=== PATIENT | female | born 1960 | race Caucasian/White ===

== ENCOUNTER 2016-11-02 16:25 | Inpatient (IN) | payer OTHER ==
[~2016-11-02] VITALS: Ht 165.1 cm; Wt 89.8 kg
[~2016-11-02 16:25] MED LIST: ATA10 PO; BENZ1TAB24 PO; CLON1TAB PO; DIVA500T1 PO; LEVO0.0711 PO; LORA-476 PO; PARO20TA13 PO; RISP2TAB PO; TRAZ-286 PO; [UNRECOGNIZED DRUG - CODE] PO
--- NOTE | 2016-11-02 16:25 | NUR ---
Note undone in EDM - 11/02/16 at 1736 by [email or web address] 56 /F BIBA FROM HOME FOR POSSIBLE INGESTION OF XANAX, UNKNOWN AMOUNT UNKNOWN TIME. DENIES N/V/D; SKIN IS PINK/WARM/DRY; PT ALERT & OREINTED TO NAME . PT STS PT TOOK HER FREIND MED "XANAX" BUT CAN'T REMEMBER TIME OR HOW MUCH. PT HAS UNSTEADY GAIT; LUNGS CLEAR BL; HR EVEN AND REGULAR; PT DENIES ANY FEVER, CP, SOB, OR COUGH AT THIS TIME; PATIENT STATES PAIN OF 0/10 AT THIS TIME; VSS; PATIENT POSITIONED FOR COMFORT; HOB ELEVATED; BEDRAILS UP X2; BED DOWN. ER MD MADE AWARE OF PT STATUS.
--- NOTE | 2016-11-02 16:25 | NUR ---
Patient BIBA ACLS, transferred to bed 4. RN evaluating patient at bedside.
--- NOTE | 2016-11-02 16:25 | NUR ---
56 /F BIBA FROM HOME FOR POSSIBLE INGESTION OF XANAX, UNKNOWN AMOUNT UNKNOWN TIME. DENIES N/V/D; SKIN IS PINK/WARM/DRY; PT ALERT & OREINTED TO NAME . PT STS PT TOOK HER FREIND MED "XANAX" BUT CAN'T REMEMBER TIME OR HOW MUCH. PT HAS STEADY GAIT; LUNGS CLEAR BL; HR EVEN AND REGULAR; PT DENIES ANY FEVER, CP, SOB, OR COUGH AT THIS TIME; PATIENT STATES PAIN OF 0/10 AT THIS TIME; VSS; PATIENT POSITIONED FOR COMFORT; HOB ELEVATED; BEDRAILS UP X2; BED DOWN. ER MADE AWARE OF PT STATUS. Addendum: 11/02/16 at 1825 by [email or web address] PT DENIES TO KILL HERSELF JUST TOOK MED FOR DEORESSION.
[2016-11-02 16:28] VITALS: BP 117/77
[2016-11-02] MEDS ORDERED: NACL 0.9% 1,000 ML IV ONE (16:50)
--- NOTE | 2016-11-02 17:04 | NUR ---
X RAY AT BEDSIDE
--- NOTE | 2016-11-02 17:09 | NUR ---
EKG AT BEDSIDE.
[2016-11-02 17:17] LABS: BASOPHILS # (AUTO) 0.3 K/uL (0.00-0.22); EOSINOPHILS # (AUTO) 0.2 K/uL (0-0.4); HEMATOCRIT 40.9 % (36-48); HEMOGLOBIN 13.6 g/dL (12.0-16.0); MEAN CORPUSCULAR HEMOGLOBIN 30 pg (27-31); MEAN CORPUSCULAR HGB CONC 33 g/dL (33-37); MEAN CORPUSCULAR VOLUME 91 fL (80-94); MONOCYTES # (AUTO) 0.2 K/uL (0.8-1.0); NEUTROPHILS # (AUTO) 3.3 K/uL (1.8-7.7); PLATELET COUNT (AUTO) 228 K/uL (140-450); RED CELL DISTRIBUTION WIDTH 12.7 % (11.6-13.7)
[2016-11-02 17:26] LABS: PROTHROMBIN TIME 10.1 secs (10.8-13.4)
[2016-11-02 17:30] LABS: ALBUMIN 3.3 g/dL (3.4-5.0); ANION GAP 12.4 (8-16); CARBON DIOXIDE 25.8 mmol/L (21-32); CREATININE 0.9 mg/dL (0.6-1.3); POTASSIUM 4.2 mmol/L (3.5-5.1); TOTAL BILIRUBIN 0.1 mg/dL (0.0-1.0)
--- NOTE | 2016-11-02 17:34 | NUR ---
Patient appears to be resting comfortably in bed. Vital Signs within normal limits. Respirations even and unlabored.WILL CONTINUE TO MONITOR.
[2016-11-02 17:48] LABS: ACETAMINOPHEN < 0.5 ug/ml (10-30); SALICYLATE < 2.8 mg/dL (2.8-20.0)
[2016-11-02 17:57] LABS: BILIRUBIN,URINE NEGATIVE (NEGATIVE); BLOOD, URINE NEGATIVE (NEGATIVE); COLOR,URINE YELLOW (YELLOW); LEUKOCYTE ESTERASE ,URINE NEGATIVE (NEGATIVE); NITRITE, URINE NEGATIVE (NEGATIVE); UGLUCOSE NEGATIVE (NEGATIVE)
[2016-11-02 18:04] LABS: BARBITURATE, URINE NEG. ng/ml (NEG <=200); BENZODIAZEPINE, URINE NEG. ng/mL (NEG <=200); CANNABINOID, URINE NEG. ng/mL (NEG <=50); COCAINE, URINE NEG. ng/mL (NEG <=300); OPIATE, URINE NEG. ng/mL (NEG <=2000); PHENCYCLIDINE SCREEN,URINE NEG. ng/mL (NEG <=25)
[2016-11-02 18:05] LABS: APPEARANCE,URINE CLEAR (CLEAR)
[2016-11-02] MEDS ORDERED: ACETAMINOPHEN 325 MG TAB PO PRN (18:15)
[2016-11-02] MEDS ORDERED: MORPHINE SULFATE 2 MG/ML SYR IVP PRN (18:15)
[2016-11-02] MEDS ORDERED: ONDANSETRON 4 MG/2 ML VIAL IM/IVP PRN (18:15)
[2016-11-02] MEDS ORDERED: DOCUSATE SODIUM 100 MG GELCAP PO PRN (18:15)
[2016-11-02] MEDS ORDERED: HYDROcodone/APAP 7.5/325 MG 1 TAB PO PRN (18:15)
--- NOTE | 2016-11-02 18:35 | NUR ---
GAVE REPORT TO KONSTANTIN BO.
--- NOTE | 2016-11-02 18:36 | NUR ---
Patient will be admitted to care of DR CERDA. Admited to TELE. Will go to [facility]. Belongings list completed. Report to KONSTANTIN BO.
--- NOTE | 2016-11-02 18:50 | NUR ---
PT ARRIVED ON THE UNIT ON A GURNEY WITH 2 ER NURSES. PT IS LUCID, MUMBLING, HARD TO UNDERSTAND. PT WEARING NC 2L O2 AND GLASSES. SHE HAS AN IV ON R AC 20G. NS JUST FINISHED. PT WANTED TO USE TO THE BATHROOM. ASSISTED PT. PT IS UNSTEADY ON HER FEET. V/S WITHIN NORMAL. WILL ENDORSE PT AND ASSESSMENT TO ONCOMING NURSE.
[2016-11-02 19:00] VITALS: BP_SYST 109; BP_SYST 116; BP_DIAS 76; BP_DIAS 83
--- NOTE | 2016-11-02 19:15 | NUR ---
ENDORSED PT TO THE SALVAGER HELPER NURSE AT BEDSIDE FOR CONTINUITY OF CARE. PT IS IN STABLE CONDITION. IN BED.
--- NOTE | 2016-11-02 19:16 | NUR ---
RECEIVED PATIENT REPORT FROM MORNING NURSE. PATIENT IS AWAKE BUT CONFUSED. NO SIGNS AND SYMPTOMS OF DISTRESS NOTED. NO COMPLAINTS OF PAIN AT THIS TIME. PT ON O2 2L VIA NC. IV SITE NOTED ON RIGHT AC, SALINE LOCKED. SURGICAL SCAR NOTED ON LEFT CHEST, DRY AND INTACT. BED IN LOWEST POSITION, SIDE RAILS UP AND CALL LIGHT WITHIN REACH. WILL CONTINUE TO MONITOR. Addendum: 11/03/16 at 0300 by Jona Barnes RN SURGICAL SCAR NOTED ON RIGHT CHEST, NOT LEFT
[2016-11-02 19:39] LABS: FREE T4 (FREE THYROXINE) 1.01 ng/dL (0.76-1.46); MAGNESIUM 2.1 mg/dL (1.8-2.4); PHOSPHORUS 4.1 mg/dL (2.5-4.9); THYROID STIMULATING HORMONE 0.29 uIU/mL (0.34-3.74)
[2016-11-02] MEDS: NACL 0.9% 1,000 ML IV SCH (21:30)
--- NOTE | 2016-11-02 21:30 | NUR ---
ASSISTED PATIENT TO THE RESTROOM. PATIENT VOIDED. NO SIGNS AND SYMPTOMS OF DISTRESS NOTED.
[2016-11-02] MEDS ORDERED: LORazepam 2 MG/ML VIAL IVP PRN (21:40)
--- NOTE | 2016-11-02 23:00 | NUR ---
ASSISTED PATIENT TO THE RESTROOM. PATIENT VOIDED. NO SIGNS AND SYMPTOMS OF DISTRESS NOTED.
[2016-11-03] VITALS: BP 136/89
--- NOTE | 2016-11-03 | NUR ---
RECEIVED A PHONE CALL FROM POISON CONTROL REGARDING PATIENT. POISON CONTROL REQUESTED LATEST VITAL SIGNS AND PATIENT'S STATUS. THEY INFORMED ME THAT A XANAX OVERDOSE IS ANTICIPATED TO RESOLVE WITHIN 4 HOURS OF OVERDOSE.
--- NOTE | 2016-11-03 00:30 | NUR ---
ASSISTED PATIENT TO THE RESTROOM. PATIENT VOIDED. NO SIGNS AND SYMPTOMS OF DISTRESS NOTED.
--- NOTE | 2016-11-03 01:20 | NUR ---
ASSISTED PATIENT TO THE RESTROOM. PATIENT VOIDED. NO SIGNS AND SYMPTOMS OF DISTRESS NOTED.
[2016-11-03] MEDS: NACL 0.9% 1,000 ML IV SCH ×3 (01:57→16:04)
--- NOTE | 2016-11-03 03:15 | NUR ---
ASSISTED PATIENT TO THE RESTROOM. PATIENT VOIDED. NO SIGNS AND SYMPTOMS OF DISTRESS NOTED.
[2016-11-03] MEDS ORDERED: hydrOXYzine HCL 10 MG TAB PO PRN (03:45)
[2016-11-03 04:00] VITALS: BP 122/86
--- NOTE | 2016-11-03 05:05 | NUR ---
ASSISTED PATIENT TO THE RESTROOM. PATIENT VOIDED. NO SIGNS AND SYMPTOMS OF DISTRESS NOTED.
[2016-11-03 06:17] LABS: BASOPHILS # (AUTO) 0.3 K/uL (0.00-0.22); BASOPHILS % (AUTO) 4.5 % (0.0-2.0); EOSINOPHILS # (AUTO) 0.2 K/uL (0-0.4); EOSINOPHILS % (AUTO) 3.7 % (0.0-4.0); HEMATOCRIT 37.8 % (36-48); HEMOGLOBIN 12.5 g/dL (12.0-16.0); LYMPHOCYTES # (AUTO) 1.7 K/uL (2.5-16.5); LYMPHOCYTES % (AUTO) 29.1 % (20.5-51.1); MEAN CORPUSCULAR HEMOGLOBIN 30 pg (27-31); MEAN CORPUSCULAR HGB CONC 33 g/dL (33-37); MEAN CORPUSCULAR VOLUME 91 fL (80-94); MONOCYTES # (AUTO) 0.4 K/uL (0.8-1.0); MONOCYTES % (AUTO) 6.6 % (1.7-9.3); NEUTROPHILS # (AUTO) 3.3 K/uL (1.8-7.7); NEUTROPHILS % (AUTO) 56.1 % (42.2-75.2); PLATELET COUNT (AUTO) 225 K/uL (140-450); RED BLOOD CELL COUNT(AUTO) 4.15 MIL/uL (4.20-5.40); RED CELL DISTRIBUTION WIDTH 12.2 % (11.6-13.7); WHITE BLOOD COUNT (AUTO) 5.9 K/uL (4.8-10.8)
[2016-11-03 06:37] LABS: ANION GAP 9.6 (8-16); CARBON DIOXIDE 25.3 mmol/L (21-32); CREATININE 0.7 mg/dL (0.6-1.3); POTASSIUM 3.9 mmol/L (3.5-5.1)
[2016-11-03 06:41] LABS: PHOSPHORUS 3.7 mg/dL (2.5-4.9)
[2016-11-03] MEDS ORDERED: LORazepam 1 MG TAB PO SCH (07:00)
--- NOTE | 2016-11-03 07:28 | NUR ---
PATIENT REPORT GIVEN TO MORNING NURSE. PATIENT IS IN STABLE CONDITION.
--- NOTE | 2016-11-03 07:29 | NUR ---
PT AWAKE AND ALERT, NO SIGNS OF ACUTE DISTRESS. BOWEL SOUNDS ACTIVE IN ALL 4 QUADRANTS. BOWEL AND BLADDER CONTINENCE. SKIN INTACT. IV PATENT AND ASYMPTOMATIC. PT ON ROOM AIR. RE-ORIENTED TO HOSPITAL AND TO UNIT, PT VERBALIZED UNDERSTANDING. BED IN LOW POSITION WITH BILATERAL HALF SIDE RAILS UP, BED ALARM ON, CALL LIGHT WITHIN REACH. WILL CONTINUE TO MONITOR.
[2016-11-03 08:00] VITALS: BP 129/86
--- NOTE | 2016-11-03 08:15 | NUR ---
RE-ORIENTED PATIENT TO UNIT. SPOKE WITH PATIENT REGARDING XANEX OVERDOSE. PER PATIENT IT WAS AN ACCIDENTAL OD, SHE DIDN'T DO IT ON PURPOSE. BED IN LOW POSITION WITH BILATERAL HALF SIDE RAILS UP, CALL LIGHT WITHIN REACH. WILL CONTINUE TO MONITOR.
--- NOTE | 2016-11-03 08:16 | NUR ---
PATIENT HAS BEEN SCREENED AND CATEGORIZED MODERATE NUTRITION RISK. PATIENT WILL BE SEEN WITHIN 3-5 DAYS OF ADMISSION. 11/05/16-11/07/[address]
[2016-11-03 08:23] LABS: T4 (THYROXINE) 5.8 ug/dL (4.5-12.0)
[2016-11-03] MEDS ORDERED: ONDANSETRON 4 MG/2 ML VIAL IM/IVP PRN (08:25)
[2016-11-03] MEDS ORDERED: ACETAMINOPHEN 325 MG TAB PO PRN (08:25)
[2016-11-03] MEDS ORDERED: MORPHINE SULFATE 2 MG/ML SYR IVP PRN (08:25)
[2016-11-03] MEDS ORDERED: HYDROcodone/APAP 7.5/325 MG 1 TAB PO PRN (08:25)
[2016-11-03] MEDS ORDERED: DOCUSATE SODIUM 100 MG GELCAP PO PRN (08:25)
[2016-11-03] MEDS ORDERED: PARoxetine 20 MG TAB PO SCH (09:00)
[2016-11-03] MEDS ORDERED: LEVOTHYROXINE 0.075 MG TAB PO SCH (09:00)
--- NOTE | 2016-11-03 09:42 | NUR ---
GREGORY NOTE SPOKE WITH SAUD OF [facility] PH# [phone] [facility] AND INFORMED HER OF THE ORDER FOR PATIENT TRANSFER TO [facility]. PER SAUD, THERE IS NO ASSIGNED COSMETOLOGY EDUCATOR YET AND SHE REQUESTED CLINICAL REVIEW BE FAXED TO [facility]. FAXED INITIAL REVIEW TO [facility] [phone]. WILL FOLLOW UP.
--- NOTE | 2016-11-03 10:00 | NUR ---
PT CONTINUOUSLY REMOVING TELE MONITOR. DR ROSA MADE AWARE.
[2016-11-03] MEDS: BENZTROPINE 1 MG TAB PO SCH ×3 (10:02→17:05)
[2016-11-03] MEDS: risperiDONE 1 MG TAB PO SCH ×2 (10:02→12:07)
[2016-11-03] MEDS: clonazePAM 0.5 MG TAB PO SCH ×3 (10:03→17:05)
--- NOTE | 2016-11-03 10:30 | NUR ---
PATIENT RESTING COMFORTABLY IN BED, SPOUSE AT BEDSIDE, NO SIGNS OF ACUTE DISTRESS. BED IN LOW POSITION WITH BILATERAL HALF SIDE RAILS UP, BED ALARM ON, CALL LIGHT WITHIN REACH. WILL CONTINUE TO MONITOR.
--- NOTE | 2016-11-03 11:07 | NUR ---
CM NOTE SPOKE WITH RACH OF [facility] [phone] [facility], WHO SAID THE ASSIGNED CM IS WINIFRED Burgos WHO IS CURRENTLY ON THE PHONE ON ANOTHER LINE. PER RACH, GREGORY Burgos WILL CALL BACK ONCE SHE HAS THE DETAILS FOR THE TRANSFER. WILL FOLLOW UP.
[2016-11-03 12:00] VITALS: BP 98/56
[2016-11-03] MEDS: LORazepam 1 MG TAB PO SCH ×2 (12:08→17:04)
--- NOTE | 2016-11-03 12:45 | NUR ---
HELPED PATIENT TO RESTROOM, PT AWAKE AND ALERT, NO SIGNS OF ACUTE DISTRESS. BED IN LOW POSITION WITH BILATERAL HALF SIDE RAILS UP, BED ALARM ON, CALL LIGHT WITHIN REACH. WILL CONTINUE TO MONITOR.
--- NOTE | 2016-11-03 13:10 | NUR ---
GREGORY NOTE SPOKE WITH GREGORY Burgos OF [place] PH# [phone] [facility]. PER GREGORY VITALE, WAITING FOR BED AVAILABILITY IN [facility]. GREGORY VITALE MADE AWARE OF THE NUMBER TO THE FLOOR WHERE PATIENT IS IN CASE BED BECOMES AVAILABLE AT A LATER TIME TODAY. CHARGE NURSE GUERA HOUGH.
--- NOTE | 2016-11-03 13:25 | NUR ---
Social Service Note: I met with patient at bedside. She stated accidently took medication prior to hospital admission, she denies suicidal ideation. She stated she does not want to harm herself or others. I inquired if she was suicidal several times, she denied suicidal ideation.
--- NOTE | 2016-11-03 14:50 | NUR ---
PT RESTING IN BED, NO SIGNS OF ACUTE DISTRESS. BED IN LOW POSITION WITH BILATERAL HALF SIDE RAILS UP, CALL LIGHT WITHIN REACH. WILL CONTINUE TO MONITOR.
--- NOTE | 2016-11-03 15:50 | NUR ---
RECEIVED ORDER FROM DR MERCADO TO TRANSFER TO [facility]UR[facility], NOTED, WILL CARRY OUT.
[2016-11-03 16:00] VITALS: BP 140/91
--- NOTE | 2016-11-03 16:41 | NUR ---
PT SLEEPING, NO SIGNS OF ACUTE DISTRESS. BED IN LOW POSITION WITH BILATERAL HALF SIDE RAILS UP, BED ALARM ON, CALL LIGHT WITHIN REACH. WILL CONTINUE TO MONITOR.
--- NOTE | 2016-11-03 18:40 | NUR ---
PT SLEEPING, NO SIGNS OF ACUTE DISTRESS. BED IN LOW POSITION, BED ALARM ON, BILATERAL HALF SIDE RAILS UP, CALL LIGHT WITHIN REACH. WILL CONTINUE TO MONITOR.
--- NOTE | 2016-11-03 19:28 | NUR ---
PT AWAKE AND ALERT, NO SIGNS OF ACUTE DISTRESS. ENDORSED TO PHOTO ENGRAVER NURSE FOR CONTINUITY OF CARE. BED IN LOW POSITION, BILATERAL HALF SIDE RAILS UP, CALL LIGHT WITHIN REACH, BED ALARM ON.
--- NOTE | 2016-11-03 19:30 | NUR ---
RECEIVED REPORT FROM DAY RN AT BEDSIDE, PATIENT IS AAOX2 ON ROOM AIR, PATIENT IS FORGETFUL. NO SOB OR SIGN OF DISTRESS AT THIS TIME, IV TO LEFT WRIST PATENT AND INTACT. SKIN INTACT WITH HEALED SURGICAL SCAR TO RIGHT BREAST. PATIENT DENIES PAIN AT TIS TIME. DISCUSSED PLAN OF CARE WITH PATIENT, PT VERBALIZED UNDERSTANDING, REINFORCEMENT NEEDED. SAFETY MEASURES CHECKED, BED ALARM ON , CALL LIGHT WITHIN REACH. WILL CONTINUE TO MONITOR
[2016-11-03 20:00] VITALS: BP 108/78
[2016-11-03] MEDS ORDERED: DIVALPROEX 500 MG TABER PO SCH (21:00)
--- NOTE | 2016-11-03 21:52 | NUR ---
PATIENT TO BE TRANSFERRED TO [facility]. CALLED AND GAVE REPORT TO KONSTANTIN PORTILLO. PATIENT TO GO TO ROOM 8246. MEDICAL OFFICE WORKER TIME ESTIMATED AT 9070
--- NOTE | 2016-11-03 22:00 | NUR ---
PATIENT RESTING IN BED, CONFUSED, SAFETY MEASURES CHECKED, BED ALARM ON, CALL LIGHT WITHIN REACH. WILL CONTINUE TO MONITOR.
--- NOTE | 2016-11-03 22:36 | NUR ---
PATIENT PICKED UP BY TRANSPORT, IV TO LEFT WRIST INTACT. ALL PATIENT BELONGINGS WITH PATIENT, PAPER WORK SIGNED, PATIENT IN STABLE CONDITION.
== END 2016-11-03 22:40 | disposition short-term general hospital (02) | DRG 917 ==
LOC: MED 16:25 → MTU 18:22
PROVIDERS: ADMIT Family Medicine; ATTEND Family Medicine
DX: T42.4X1A Poisoning by benzodiazepines, accidental (unintentional), initial encounter (principal); G92 Toxic encephalopathy; F31.9 Bipolar disorder, unspecified; E44.1 Mild protein-calorie malnutrition; G25.81 Restless legs syndrome; G40.909 Epilepsy, unspecified, not intractable, without status epilepticus; F41.9 Anxiety disorder, unspecified; Z68.32 Body mass index [BMI] 32.0-32.9, adult; E05.90 Thyrotoxicosis, unspecified without thyrotoxic crisis or storm
CPT/HCPCS: 36415; 70450; 71010; 80048; 80053; 80305; 81003; 82150; 83036; 83690; 83735; 83880; 84100; 84436; 84439; 84443; 84479; 84484; 85025; 85610; 85730; 87081; 93005; 96360; 99291; G0480; G0482; J2060; J7030; J7060

== ENCOUNTER 2022-05-26 18:03 | Emergency (ER) | payer OTHER ==
[~2022-05-26] VITALS: Ht 167.6 cm; Wt 119.3 kg
[~2022-05-26 18:03] MED LIST changes: -TRAZ-286 PO; +TRAZ-343 PO
[2022-05-26 18:08] VITALS: BP 148/91
--- NOTE | 2022-05-27 01:07 | NUR ---
mayo syed assisted to bed #1
[2022-05-27 01:38] LABS: BASOPHILS # (AUTO) 0.1 K/uL (0.00-0.22); BASOPHILS % (AUTO) 1.1 % (0.0-2.0); EOSINOPHILS # (AUTO) 0.3 K/uL (0-0.4); HEMATOCRIT 41.4 % (36-48); HEMOGLOBIN 13.7 g/dL (12.0-16.0); LYMPHOCYTES # (AUTO) 3.9 K/uL (2.5-16.5); LYMPHOCYTES % (AUTO) 35.8 % (20.5-51.1); MEAN CORPUSCULAR HEMOGLOBIN 30 pg (27-31); MEAN CORPUSCULAR HGB CONC 33 g/dL (33-37); MEAN CORPUSCULAR VOLUME 90.3 fL (80-94); MONOCYTES % (AUTO) 8.9 % (1.7-9.3); NEUTROPHILS # (AUTO) 5.6 K/uL (1.8-7.7); NEUTROPHILS % (AUTO) 51.2 % (42.2-75.2); PLATELET COUNT (AUTO) 276 K/uL (140-450); RED BLOOD CELL COUNT(AUTO) 4.58 MIL/uL (4.20-5.40); RED CELL DISTRIBUTION WIDTH 14.6 % (11.6-13.7); WHITE BLOOD COUNT (AUTO) 10.9 K/uL (4.8-10.8)
--- NOTE | 2022-05-27 02:18 | NUR ---
ASSUMED CARE AT THIS TIME
--- NOTE | 2022-05-27 02:27 | NUR ---
ATTACHED TO CM = SR WITHOUT ECTOPY
[2022-05-27 02:41] LABS: ANION GAP 17.9 (8-16); CARBON DIOXIDE 24.1 mmol/L (21-32)
[2022-05-27 02:42] LABS: ALBUMIN 3.8 g/dL (3.4-5.0)
[2022-05-27 02:45] LABS: TOTAL BILIRUBIN 0.3 mg/dL (0.0-1.0)
[2022-05-27 03:40] VITALS: BP 148/91
--- NOTE | 2022-05-27 03:40 | NUR ---
Patient discharged with v/s stable. Written and verbal after care instructions given and explained. Patient alert, oriented and verbalized understanding of instructions. Ambulatory with steady gait. All questions addressed prior to discharge. ID band removed. Patient advised to follow up with PMD. Patient educated on indication of medication including possible reaction and side effects. Opportunity to ask questions provided and answered.
== END 2022-05-27 03:40 | disposition home or self-care (01) ==
LOC: MED 18:03
DX: R06.00 Dyspnea, unspecified (principal); J44.9 Chronic obstructive pulmonary disease, unspecified; E03.9 Hypothyroidism, unspecified; Z85.3 Personal history of malignant neoplasm of breast; Z79.899 Other long term (current) drug therapy
CPT/HCPCS: 36415; 36600; 71045; 80053; 82803; 83880; 84484; 85025; 93005; 99285; Q0092

== ENCOUNTER 2022-07-27 14:33 | Emergency (ER) | payer OTHER ==
[~2022-07-27] VITALS: Ht 165.1 cm; Wt 119.3 kg
[2022-07-27 14:53] VITALS: BP 166/98
[2022-07-27] MEDS ORDERED: CIPR7.5S RIGHT EAR (15:23)
[2022-07-27] MEDS ORDERED: IBUP-2213 PO (15:23)
--- NOTE | 2022-07-27 15:29 | NUR ---
Patient discharged with v/s stable. Written and verbal after care instructions given and explained. Patient verbalized understanding. Ambulatory with steady gait. All questions addressed prior to discharge. Advised to follow up with PMD.
== END 2022-07-27 15:29 | disposition home or self-care (01) ==
LOC: MED 14:33
DX: H60.91 Unspecified otitis externa, right ear (principal); E03.9 Hypothyroidism, unspecified; J44.9 Chronic obstructive pulmonary disease, unspecified; Z85.3 Personal history of malignant neoplasm of breast; Z79.899 Other long term (current) drug therapy
CPT/HCPCS: 99283

== ENCOUNTER 2023-05-16 10:30 | Emergency (ER) | payer MEDICARE, OTHER ==
[~2023-05-16] VITALS: Ht 165.1 cm; Wt 113.4 kg
[~2023-05-16 10:30] MED LIST changes: +CIPR7.5S RIGHT EAR; +IBUP-2213 PO
[2023-05-16 10:48] VITALS: BP 132/77; PULSE 69; RESP 19; TEMP 98.7; O2SAT 94
[2023-05-16] MEDS ORDERED: FLONAS NS (11:14)
== END 2023-05-16 11:19 | disposition home or self-care (01) ==
LOC: MED 10:30
DX: J30.9 Allergic rhinitis, unspecified (principal); J44.9 Chronic obstructive pulmonary disease, unspecified; E03.9 Hypothyroidism, unspecified; R03.0 Elevated blood-pressure reading, without diagnosis of hypertension; Z90.11 Acquired absence of right breast and nipple; Z85.3 Personal history of malignant neoplasm of breast; Z79.1 Long term (current) use of non-steroidal anti-inflammatories (NSAID); Z79.899 Other long term (current) drug therapy
CPT/HCPCS: 99282

== ENCOUNTER 2023-07-11 15:48 | Emergency (ER) | payer MEDICARE ==
[~2023-07-11] VITALS: Ht 165.1 cm; Wt 103.9 kg
[~2023-07-11 15:48] MED LIST changes: +CLON-1202 PO; -CLON1TAB PO; +FLONAS NS
[2023-07-11 16:36] VITALS: BP 126/68; PULSE 55; RESP 21; TEMP 98.6; O2SAT 97
[2023-07-11] MEDS ORDERED: DIAZ5TAB13 PO (18:32)
== END 2023-07-11 18:30 | disposition home or self-care (01) ==
LOC: MED 15:48
DX: J44.9 Chronic obstructive pulmonary disease, unspecified (principal); E03.9 Hypothyroidism, unspecified; Z76.0 Encounter for issue of repeat prescription; Z79.899 Other long term (current) drug therapy
CPT/HCPCS: 99281